=== PATIENT | female | born 1955 | race Caucasian/White ===

== ENCOUNTER 2018-07-20 06:15 | Day surgery (SDC) | payer SELFPAY ==
[~2018-07-20] VITALS: Ht 149.9 cm; Wt 61.7 kg
[~2018-07-20 06:15] MED LIST: AMLODIPINE5 MG PO; ASPIRIN81 MG PO; BLOOD PRESSURE MEDS; FUROSEMIDE40 MG PO; LOPRESSOR50 M1 PO; LOSARTAN/HCT1 TA1 PO; POTASSIUM99 MG PO; WATER PILL; [UNRECOGNIZED DRUG - REMARK]
[2018-07-20 07:57] VITALS: BP 135/66
[2018-07-20 09:04] LABS: BARBITURATES NEGATIVE (NEGATIVE); COCAINE NEGATIVE (NEGATIVE); METHADONE NEGATIVE (NEGATIVE); OXCYCODONE NEGATIVE (NEGATIVE); TETRAHYDROCANNABIONOL POSITIVE (NEGATIVE); TRICYLIC ANTIDEPRESSANTS NEGATIVE (NEGATIVE)
== END 2018-07-20 09:15 | disposition home or self-care (01) | DRG 156 ==
LOC: ORM 06:15
PROVIDERS: ATTEND Surgery
DX: H93.8X1 Other specified disorders of right ear (principal); I10 Essential (primary) hypertension; R82.5 Elevated urine levels of drugs, medicaments and biological substances; Z53.09 Procedure and treatment not carried out because of other contraindication; Z80.9 Family history of malignant neoplasm, unspecified

== ENCOUNTER 2018-07-29 07:02 | Day surgery (SDC) | payer SELFPAY ==
[~2018-07-29] VITALS: Ht 149.9 cm; Wt 61.7 kg
[2018-07-29 08:28] LABS: BARBITURATES NEGATIVE (NEGATIVE); COCAINE NEGATIVE (NEGATIVE); METHADONE NEGATIVE (NEGATIVE); OXCYCODONE NEGATIVE (NEGATIVE); TETRAHYDROCANNABIONOL POSITIVE (NEGATIVE); TRICYLIC ANTIDEPRESSANTS NEGATIVE (NEGATIVE)
[2018-07-29] MEDS ORDERED: PERCOCET 5/325M1 TAB PO (10:10)
[2018-07-29] MEDS ORDERED: KEFLEX500 MG PO (10:10)
[2018-07-29 10:43] VITALS: BP 109/61
== END 2018-07-29 10:48 | disposition home or self-care (01) | DRG 607 ==
LOC: ORM 07:02
PROVIDERS: ATTEND Surgery
PROC: 0HB2XZZ Excision of Right Ear Skin, External Approach (ICD-10-PCS; principal; 2018-07-29)
DX: L72.3 Sebaceous cyst (principal); I10 Essential (primary) hypertension; Z80.9 Family history of malignant neoplasm, unspecified

== ENCOUNTER 2020-11-06 09:15 | Day surgery (SDC) | payer MEDICAID ==
[~2020-11-06] VITALS: Ht 149.9 cm; Wt 61.2 kg
[~2020-11-06 09:15] MED LIST changes: +AMIODARONE200 MG PO; +ARICEPT10 MG PO; +CLINDAMYCIN HY300 MG PO; +CLOPIDOGREL75 MG PO; +DILTIAZEM60 MG PO; +KEFLEX500 MG PO; +LIPITOR20 M1 PO; +LOSARTAN/HCT1 TA2 PO; +METFORMIN500 M2 PO; +PANTOPRAZOLE SO40 M1 PO; +PERCOCET 5/325M1 TAB PO; +XARELTO20 MG PO
[2020-11-06 11:49] VITALS: BP 147/70
== END 2020-11-06 12:00 | disposition home or self-care (01) ==
LOC: ENDO 09:15
PROVIDERS: ATTEND Surgery
DX: Z12.11 Encounter for screening for malignant neoplasm of colon (principal); D12.3 Benign neoplasm of transverse colon; C64.9 Malignant neoplasm of unspecified kidney, except renal pelvis; Z95.5 Presence of coronary angioplasty implant and graft; Z79.01 Long term (current) use of anticoagulants; Z79.82 Long term (current) use of aspirin

== ENCOUNTER 2022-01-17 08:23 | Emergency (ER) | payer MEDICAID ==
[2022-01-17] VITALS (18 sets, daily range): BP systolic 149–229; BP diastolic 66–114
[~2022-01-17] VITALS: Ht 149.9 cm; Wt 61.8 kg
[2022-01-17] MEDS ORDERED: AZITHROMYCIN500 MG PO (08:36)
[2022-01-17] MEDS ORDERED: FUROSEMIDE20 MG PO (08:43)
[2022-01-17] MEDS ORDERED: PAROXETINE10 MG PO (08:43)
[2022-01-17] MEDS ORDERED: POTASSIUM CHLO20 ME2 PO (08:44)
[2022-01-17] MEDS ORDERED: METOPROL TAR25 MG PO (08:44)
[2022-01-17 09:44] LABS: ALBUMIN 5.1 g/dL (3.2-5.0); ALKALINE PHOSPHATASE 102 u/l (38-126); ANION GAP 21 (6-22 (CALC)); BILIRUBIN, TOTAL 0.7 mg/dL (0.0-1.4); BUN 18 mg/dL (8-23); BUN/CREATININE RATIO 17 (12-20 (CALC)); CARBON DIOXIDE 22 mmol/l (22-30); CHLORIDE 103 mmol/l (95-108); CREATININE 1.1 mg/dL (0.5-1.0); GFR FOR AFR.AMER. > 60 ML/MIN (>=60 (CALC)); GFR OTHER RACES 50 ML/MIN (>=60 (CALC)); LIPASE 173 u/l (23-300); POTASSIUM 3.7 mmol/l (3.5-5.1); SGOT/AST 46 u/l (9-36); SODIUM 143 mmol/l (137-146); TOTAL PROTEIN 8.5 g/dL (6.3-8.2)
[2022-01-17 09:52] LABS: HEMATOCRIT 34.9 % (37.0-47.0); HEMOGLOBIN 10.8 g/dl (12.0-16.0); IMMATURE GRANULOCYTES 0.7 % (0.0-5.0); MEAN CORPUSCULAR HGB CONC 30.9 g/dL CAL (32.0-36.0); NEUT# 11.72 thou/uL (2.00-7.15); RED BLOOD COUNT 4.9 mill/uL (4.20-5.60); RED CELL DISTRI WIDTH 16.5 % (11.5-15.5)
[2022-01-17 09:53] LABS: MEAN CELL VOLUME 71.2 fL CALC (80.0-100.0)
[2022-01-17] MEDS ORDERED: COMPAZINE10 MG PO (12:43)
== END 2022-01-17 13:15 | disposition home or self-care (01) ==
LOC: ED 08:23
PROVIDERS: Emergency Medicine
DX: R11.2 Nausea with vomiting, unspecified (principal); R10.32 Left lower quadrant pain